=== PATIENT | female | born 1970 | race Two or more races ===

== ENCOUNTER 2017-06-15 17:29 | Emergency (ER) | payer BC ==
[2017-06-15 17:50] VITALS: BP 109/58
[2017-06-15] MEDS ORDERED: Lactated Ringers 1,000 ML IV SCH (18:00)
[2017-06-15] MEDS ORDERED: Sodium Chloride 0.9% 10 ML Syringe FLUSH PRN (18:17)
[2017-06-15 18:30] LABS: CHLORIDE,CL 99 mmol/L (98-107); SODIUM,NA 132 mmol/L (136-145)
[2017-06-15] MEDS ORDERED: Lactated Ringers 1,000 ML IV ONE (18:37)
--- NOTE | 2017-06-18 09:04 | ER ---
Date of Service: 06/15/2017 SUBJECTIVE: Arielle presents to the emergency room with complaints of myalgias to her legs and feet. She was in a [employer] class and was doing a lot of strenuous activity and sweating a lot. After this, she developed onset of the pain to her muscles. She states that she is not experiencing any chest pain or shortness of breath and is not experiencing any nausea, vomiting, or diarrhea initially. She states that she has no history of problems in the past with chronic myalgia. PAST MEDICAL HISTORY: None. MEDICATIONS: None. ALLERGIES: Macrobid, penicillin, sulfa, and iodine. REVIEW OF SYSTEMS: General: No fever or chills. HEENT: No sore throat, rhinorrhea, or congestion. Respiratory: No shortness of breath. Cardiac: Denies any substernal chest pain. No jaw, arm, neck, or back pain. GI: No nausea, vomiting, or diarrhea. No melena, hematochezia, or hematemesis. : Denies any dysuria. Musculoskeletal: Please see history of present illness. Neurologic: Denies any fainting, blackouts, or lightheadedness. PHYSICAL EXAMINATION: General: This is a 47-year-old female patient, in no acute distress. Vital Signs: Heart rate is 104, temperature is 37.1, blood pressure is 109/58, respiratory rate 16. Skin: Warm, pink, and dry. HEENT: Mouth: Oral mucosa is somewhat dry. No erythema. Excellent hypopharynx. Neck: Supple without masses. There is no lymphadenopathy. Lungs: Clear to auscultation. Heart: Regular rate and rhythm. Abdomen: Soft, nontender. There is no hepatosplenomegaly noted. There is no masses noted. Extremities: Without edema. She does have some muscle spasm to the hamstrings and to the quadriceps muscles as well as to the muscles of the calf. She does have spasms noted to her feet. Remainder of her physical examination is within normal limits. LABORATORY DATA: WBCs are 11.4, her hemoglobin is 10.6, and platelets are 127. Chemistry: Sodium is 132, potassium is 3.4, chloride is 99, bicarb is 21, BUN is 15, creatinine is 0.8. Creatinine clearance is 67.74. GFR is greater than 60. Glucose is 136, chloride is 7.6, corrected calcium is 8.08, magnesium is 1.8, total bilirubin is 0.2, AST is 18, ALT is 20, alkaline phosphatase is 66. Troponin is 0.041. C-reactive protein is less than 0.2, total protein is 6.4. EMERGENCY ROOM COURSE: IV access was established. She was given 2 L of lactated Ringer's. After she received her IV fluids, she stated that the discomfort in her legs improved. She was experiencing some continued mild myalgia in her calf muscles, which were massaged to help with removal of the lactic acid. She tolerated her stay well and required no anti-spasmodic or analgesic medications during her stay. ASSESSMENT: 1. Heat exhaustion with muscle spasms to the lower extremities. 2. Mild rhabdomyolysis. PLAN: The patient will be discharged. Drink plenty of fluids. Have a good meal tonight. She was advised to drink plenty of fluids during strenuous activity in hot temperatures. Follow up in the clinic in 5-7 days for recheck. All questions were answered. MWK: 06/15/2017 21:35:07 MODL: 06/16/2017 05:04:45 /[id number]
== END 2017-06-15 19:45 | disposition home or self-care (01) ==
LOC: VM.ED 17:29
DX: T67.5XXA Heat exhaustion, unspecified, initial encounter (principal); M62.82 Rhabdomyolysis; Z88.0 Allergy status to penicillin; Z88.2 Allergy status to sulfonamides
CPT/HCPCS: 36415; 80053; 82550; 83735; 84484; 85025; 86140; 93005; 96360; 96361; 99285; J7120